=== PATIENT | female | born 1975 | race Asian ===

== ENCOUNTER 2020-06-24 18:09 | Emergency (ER) | payer MEDICAID ==
[~2020-06-24] VITALS: Ht 157.5 cm; Wt 61.2 kg
[2020-06-24 18:28] VITALS: BP 133/95
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
--- NOTE | 2020-06-24 19:09 | NUR ---
hand off report given to Linda OWEN for continuation of nursing care
--- NOTE | 2020-06-24 19:20 | NUR ---
RECEIVED PT AWAKE AND ALERT IN NAD. STATES PAIN BELOW RIGHT BREAST WHERE SB WAS.
--- NOTE | 2020-06-24 19:34 | NUR ---
PT MOVED TO ER BED 2
[2020-06-24] MEDS ORDERED: ACETAMINOPHEN 325 MG TAB PO ONE (20:05)
[2020-06-24 21:17] VITALS: BP 133/95
--- NOTE | 2020-06-24 21:17 | NUR ---
Patient discharged with v/s stable. Written and verbal after care instructions given and explained. Patient verbalized understanding. Ambulatory with steady gait. All questions addressed prior to discharge. Advised to follow up with PMD.
== END 2020-06-24 21:17 | disposition home or self-care (01) ==
LOC: MED 18:09
DX: S16.1XXA Strain of muscle, fascia and tendon at neck level, initial encounter (principal); R10.13 Epigastric pain; R10.30 Lower abdominal pain, unspecified; V49.9XXA Car occupant (driver) (passenger) injured in unspecified traffic accident, initial encounter; Y93.89 Activity, other specified; Y92.89 Other specified places as the place of occurrence of the external cause; Y99.8 Other external cause status
CPT/HCPCS: 81025; 99282